=== PATIENT | male | born 1945 | race Caucasian/White ===

== ENCOUNTER 2018-03-26 02:58 | Emergency (ER) | payer BC, OTHER ==
[~2018-03-26] VITALS: Ht 182.9 cm; Wt 111.9 kg
[~2018-03-26 02:58] MED LIST: ASPIRIN81 M2 PO; BIOFLEX TABLET1 EACH PO; CENTRUM SILVER1 EAC3 PO; COUMADIN6 MG PO; CRESTOR40 MG PO; Ecotrin PO; GABAPENTIN300 MG PO; GLIPIZIDE5 MG PO; Glucotrol PO; IBUPROFEN800 MG PO; LISINOPRIL10 MG PO; Lipitor PO; Lopressor PO; METOPROLOL TART25 MG PO; Neurontin PO; OSTEO BI-FLEX1 EAC2 PO; Osteo-Biflex,Flex-A- PO; POTASSIUM GLUCO90 MG PO; POTASSIUM-9999 MG PO; SKELAXIN400 M1 PO; Skelaxin PO; Theragran PO; Xarelto PO; Zestril,Prinivil PO
[2018-03-26 03:21] LABS: MCH 33.3 PG (29.0-34.0); MCHC 35.7 G/DL (30.0-36.0); MCV 93.3 FL (86-99); PLATELET COUNT 179 K/uL (156-360); RBC DIS.WIDTH-SD 41.1 % (39-53); WHITE BLOOD COUNT 6.6 K/uL (4.1-10.2)
[2018-03-26 03:34] LABS: CHLORIDE 108 mEq/L (99-109); POTASSIUM 3.9 mEq/L (3.7-5.4); SODIUM 140 mEq/L (136-147)
[2018-03-26 03:36] LABS: GLUCOSE 213 mg/dL (70-99)
[2018-03-26 03:41] LABS: GFR ESTIMATE (CALCULATED) > 59 mL/min/ (58.99-99999); UREA NITROGEN (BUN) 18 mg/dL (9-23)
[2018-03-26 03:44] LABS: TROP-I INTERPRETATION NEGATIVE; TROPONIN-I < 0.01 ng/mL (0.0-0.30)
[2018-03-26 06:34] LABS: TROP-I INTERPRETATION NEGATIVE; TROPONIN-I 0.01 ng/mL (0.0-0.30)
[2018-03-26 07:09] VITALS: BP 139/92
== END 2018-03-26 07:15 | disposition home or self-care (01) ==
LOC: EME 02:58
PROVIDERS: Emergency Medicine
DX: I48.91 Unspecified atrial fibrillation (principal); R07.9 Chest pain, unspecified; R00.2 Palpitations; E11.9 Type 2 diabetes mellitus without complications; Z79.84 Long term (current) use of oral hypoglycemic drugs; I10 Essential (primary) hypertension; E78.5 Hyperlipidemia, unspecified; Z79.82 Long term (current) use of aspirin; Z87.891 Personal history of nicotine dependence
CPT/HCPCS: 71046; 80048; 84484; 85027; 93005

== ENCOUNTER → 2018-04-08 | Outpatient (CLI) | payer OTHER, BC | END | disposition home or self-care (01) | LOC: RES 09:53 | DX: J98.4 Other disorders of lung (principal) | CPT/HCPCS: 94060; 94726; 94729 ==